=== PATIENT | female | born 1945 | race Caucasian/White ===

== ENCOUNTER 2022-10-10 19:29 | Emergency (ER) | payer MEDICARE, SELFPAY ==
--- NOTE | ~2022-10-10 | XR_ITS ---
EXAMINATION: XR chest 2V DATE: 10/10/2022 21:19 INDICATION: Cough and fever TECHNIQUE: PA and lateral views of the chest are obtained. COMPARISON: None available FINDINGS: There are minimal airspace opacities of the right lower lobe. No pleural effusion or pneumo thorax. The cardiomediastinal silhouette is normal. There is moderate thoracic spondylosis. IMPRESSION: 1. Minimal right lower lobe airspace opacity, consistent with atelectasis versus pneumonia. Reviewed, dictated and finalized at location F. IMPRESSION: 1. Minimal right lower lobe airspace opacity, consistent with atelectasis versu s pneumonia.
[2022-10-10 19:35] VITALS: BP 138/68; PULSE 95; RESP 15; TEMP 38.3; O2SAT 96
[2022-10-10 20:26] LABS: Strep Group A RT-PCR NOT DETECTED (Negative)
[2022-10-10 20:37] LABS: Influenza A QL RT-PCR Negative (Negative); Influenza B QL RT-PCR Negative (Negative); SARS-CoV-2 RNA PCR Positive (Negative)
[2022-10-10 20:42] VITALS: PULSE 90; TEMP 38.2; O2SAT 96; O2SAT 98
--- NOTE | 2022-10-10 20:49 | ED.URI ---
HPI - URI/Sore Throat General Chief Complaint: Upper Respiratory Infection Stated Complaint: sore throat Time Seen by Provider: 10/10/22 20:48 History of Present Illness HPI Narrative: Patient is a 77-year-old female with history of ulcerative colitis managed with the budesonide and diet, here with cough, sore throat. patient notes that on Friday she arrived to [facility] after a 24 [address] ride from [place]. Yesterday she began having symptoms including a sore throat and losing her voice. She then developed a nonproductive cough as well as a fever. She had no known sick contacts. She has not been taking anything [id number] for her pain or fever. She denies any GI symptoms. She is vaccinated for COVID x3. She does note that her sore throat seems to radiate down into her upper chest but denies any overt chest pain. Related Data Allergies Allergy/AdvReac Type Severity Reaction Status Date / Time Penicillins Allergy Hives Verified 10/10/22 20:51 Review of Systems Review of Systems: CONSTITUTIONAL: Fever, chills, no sweats. EYES: Denies visual changes, redness, or discharge. ENT: congestion, sore throat, voice hoarseness CARDIOVASCULAR: Denies chest pain, palpitations, or edema. RESPIRATORY: cough, dyspnea. GASTROINTESTINAL: Denies abdominal pain, nausea, vomiting, or diarrhea. GENITOURINARY: Denies dysuria or hematuria. SKIN: Denies rash or itching. MUSCULOSKELETAL: Denies back pain, joint pain, or myalgia. NEUROLOGIC: Denies headache, numbness, or weakness. PSYCHIATRIC: Denies anxiety or depression. Exam Narrative: GENERAL: Well-appearing, well-nourished, and in no acute distress. HEAD: Normocephalic, atraumatic. EYES: PERRLA and EOMI. ENT: Nares clear, no rhinorrhea or epistaxis. Mucous membranes moist. Posterior pharyngeal erythema present, no exudate or obvious paratonsillar swelling. NECK: Supple. CHEST: Coarse bilateral breath sounds. No respiratory distress. HEART: Regular rate and rhythm. No murmur heard. Normal peripheral pulses. ABDOMEN: Soft, nontender, nondistended, normal active bowel sounds. EXTREMITIES: Normal range of motion. No edema. SKIN: Warm, dry, no rash. NEURO: No focal deficits. Alert and oriented x3. PSYCH: Normal mood and affect. Course Course Emergency Course: Chart review performed. Patient here with shortness of breath and sore throat for 24 hours. No medical or surgical history on file. No home meds on file. Triage vitals show a fever to 100.8, normal heart rate, normal blood pressure, O2 sat of 96%. Patient seen evaluated. In no acute distress. 0 his BUN with a viral swab performed in triage shows positive for COVID, negative for influenza and strep. Given patient's risk factors and anticipation for initiating vaccinated with the basic labs, chest x-ray. She does not have a local primary care doctor as she is originally from [place]. Lab work reviewed. CBC grossly within normal limits, electrolytes and troponin pending. Troponin negative. Patient reevaluated and feeling better, feels comfortable being discharged. Advise to follow her symptoms closely and get reevaluated if symptoms worsen. She should contact her PCP and discuss her results and visit. Vital Signs Vital signs: Vital Signs Temperature 100.9 F H 10/10/22 19:35 Pulse Rate 95 10/10/22 19:35 Respiratory Rate 15 10/10/22 19:35 Blood Pressure 138/68 10/10/22 19:35 Pulse Oximetry 96 10/10/22 19:35 Oxygen Delivery Room Air 10/10/22 19:35 Temperature 100.8 F H 10/10/22 20:42 Pulse Rate 90 10/10/22 20:42 Respiratory Rate 15 10/10/22 19:35 Blood Pressure 138/68 10/10/22 19:35 Pulse Oximetry 96 10/10/22 20:42 Oxygen Delivery Room Air 10/10/22 20:42 MDM - URI/Sore Throat Lab Data 10/10/22 21:40 10/10/22 21:40 Labs: Lab Results 10/10/22 10/10/22 Range/Units 19:54 21:40 WBC 5.1 (4.5-10.0) K/mm3 RBC 4.11
[2022-10-10] MEDS: ACETAMINOPHEN 325 MG TABLET 650 MG PO (21:08)
[2022-10-10 21:55] LABS: Basophils Percent Auto 0.4 % (0.2-1.2); Hematocrit 39.3 % (37.0-47.0); Hemoglobin 12.7 g/dL (12.0-15.0); Immature Granulocyte Absolute 0.01 K/mm3 (0.00-0.031); Immature Granulocyte Percent A 0.2 % (0-0.5); Lymphocytes Absolute Auto 0.47 K/mm3 (0.9-3.2); Lymphocytes Percent Auto 9.3 % (18.3-44.2); Mean Corpuscular HGB Conc 32.3 g/dl (32-36); Mean Corpuscular Hemoglobin 30.9 pg (26-34); Mean Corpuscular Volume 95.6 fl (80-100); Mean Platelet Volume 9.3 fl (7.4-10.4); Monocytes Absolute Auto 0.4 K/mm3 (0.1-0.6); Monocytes Percent Auto 7.9 % (2.6-8.5); Neutrophils Absolute Auto 4.2 K/mm3 (1.3-6.7); Neutrophils Percent Auto 82.2 % (45.5-73.1); Platelet Count Result 190 k/mm3 (150-375); Red Blood Count 4.11 M/mm3 (4.2-5.4); Red Cell Distribution Width 13.4 % (11.5-14.5); White Blood Count 5.1 K/mm3 (4.5-10.0)
[2022-10-10 22:04] LABS: Alanine Aminotransferase 22 U/L (6-35); Albumin Level 4.1 g/dL (3.5-5.1); Alkaline Phosphatase 65 U/L (38-126); Anion Gap 7 mmol/L (8-16); Aspartate Amino Transferase 31 U/L (14-36); Bilirubin,Total 0.2 mg/dL (0.2-1.3); Blood Urea Nitrogen 11 mg/dL (7-17); Calcium 8.4 mg/dL (8.4-10.2); Carbon Dioxide 26 mmol/L (22-30); Chloride 98 mmol/L (98-107); Estimated CRCL calculation 49 ml/min; Estimated Glomerular Filt Rate > 60; Glucose 110 mg/dL (65-110); Potassium 3.9 mmol/L (3.4-5.0); Sodium 131 mmol/L (137-145)
[2022-10-10 22:16] LABS: Troponin I < 0.012 ng/mL (0.000-0.034)
[2022-10-10 22:32] VITALS: TEMP 37.8; O2SAT 99
== END 2022-10-10 22:30 | disposition home or self-care (01) ==
LOC: ANHED 22:18
PROVIDERS: Nurse Practitioner Family; Emergency Provider Student in an Organized Health Care Education/Training Program
DX: U07.1 COVID-19 (principal); K51.90 Ulcerative colitis, unspecified, without complications; R91.8 Other nonspecific abnormal finding of lung field
CPT/HCPCS: 36415; 71046; 80053; 84484; 85025; 87636; 87651; 99284; A9270

== ENCOUNTER 2022-10-11 09:39 | Inpatient (IN) | payer MEDICARE, SELFPAY ==
[2022-10-11] VITALS (28 sets, daily range): BP systolic 102–135; BP diastolic 57–76; PULSE 84–103; RESP 17–29; TEMP 36.7–36.8; O2SAT 89–100; BMI 21.1
--- NOTE | ~2022-10-11 | XR_ITS ---
EXAMINATION: XR chest 1V portable DATE: 10/11/2022 10:23 INDICATION: Shortness of breath. COVID-19 pneumonia. TECHNIQUE: A single frontal view of the chest was obtained. COMPARISON: Chest 2 views 10/10/2022 FINDINGS: There are airspace and interstitial opacities in the lower lung zones. No pleural effusion or pneumothorax. The heart size is normal. IMPRESSION: 1. Worsened airspace and interstitial opacities in the lower lung zones, consistent with pneumonia. Reviewed, dictated and finalized at location B. IMPRESSION: 1. Worsened airspace and interstitial opacities in the lower lung zones, consis tent with pneumonia.
--- NOTE | 2022-10-11 10:56 | ED.GENADULT ---
HPI - General Adult General Chief complaint: Upper Respiratory Infection Stated complaint: COVID Time Seen by Provider: 10/11/22 09:51 History of Present Illness HPI narrative: 77-year-old female presented the ED for evaluation of sore throat. Patient was evaluated emergency department yesterday for a sore throat and was ultimately diagnosed with COVID. Patient was started on Paxlovid patient states that due to her sore throat she was unable to take the medication so she presented to ED for evaluation. In the waiting room patient was found to be saturating at 89% on room air. Patient normally has no O2 requirement. Patient did have an increased respiratory rate as well. Patient was placed on oxygen and improved and she was trial of oxygen and then again worsened. Check x-ray did show a worsening lower lobe pneumonia. Patient is handling her secretions in the ED but does report some increased pain with swallowing Related Data Allergies Allergy/AdvReac Type Severity Reaction Status Date / Time codeine Allergy Hallucinati Verified 10/11/22 13:18 ng Penicillins Allergy Hives Verified 10/11/22 13:17 Review of Systems Review of Systems: All systems reviewed & are unremarkable except as noted in HPI and below [facility] Past Medical History Medical History (Updated 10/11/22 @ 14:15 by Falguni Crespo NP) Anxiety Hypertension Irritable bowel syndrome Surgical History Surgical History (Updated 10/11/22 @ 14:14 by Falguni Crespo NP) H/O cataract extraction S/P tonsillectomy and adenoidectomy Family History Family History Mother Suicidal intent Father Kidney failure Diabetes mellitus Sibling Breast cancer Social History Social History (Updated 10/11/22 @ 14:17 by Falguni Crespo NP) Social History: The patient is legally from her . She typically lives in [place]. Her lives here. They have a son and a daughter. 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 She is retired. She is a former smoker Code status full code Smoking packs per day: 1 Smoking cigarettes per day: 20.0 Years smoked: 30 Smoking pack-years: 30.00 Smoking status: Former smoker Smoking end date: 11/07/22 Alcohol intake: never Substance use: never Substance use type: does not use Lack of Transportation: No Lack of Food: Never True Current Housing: I Have Housing Concerned About Future Housing: No Difficulty Paying Gas/Electric Bills: No Difficulty Paying for Meds: No Currently Unemployed: No Education: Bachelor's Degree Difficulty w/ Childcare or Family Care: No Spiritual care concerns: No Exam Narrative: APPEARANCE: Well appearing, no pain, no distress, well-nourished. HEAD: normocephalic, atraumatic. EYES: PERRLA/EOMI, conjunctivae clear. NOSE: Normal no drainage EARS:TMS clear with good light reflex. THROAT: Pharynx clear, no exudate. NECK: Supple. No adenopathy, no masses. RESPIRATORY: Airway patent, respirations nonlabored. Clear to auscultation bilaterally, no rales, rhonchi, wheezing. CARDIOVASCULAR: Regular rate and rhythm without murmurs rubs or gallops. ABDOMINAL: Soft, nontender, nondistended, normal bowel sounds MUSCULOSKELETAL: Moves all extremities. Strength/ROM intact, No edema, No calf tenderness. NEURO: Alert. Cranial nerves II through XII intact. Grossly intact SKIN: Warm, dry. Normal Color Course Course Emergency Course: 77-year-old female presented ED for evaluation of sore throat. Patient is COVID-positive is found to be hypoxic. Patient was placed on 2 L of oxygen by nasal cannula and did not tolerate weaning of the oxygen. Patient was treated with Decadron. Repeat chest x-ray does show concern for pneumonia so patient was also started on antibiotics and blood culture was pending. Patient was also treated with IV Decadron. Patient was started on Leva
[2022-10-11 11:27] LABS: Basophils Percent Auto 0.6 % (0.2-1.2); Hematocrit 40.8 % (37.0-47.0); Hemoglobin 13.3 g/dL (12.0-15.0); Immature Granulocyte Absolute 0.01 K/mm3 (0.00-0.031); Immature Granulocyte Percent A 0.3 % (0-0.5); Lymphocytes Absolute Auto 0.33 K/mm3 (0.9-3.2); Lymphocytes Percent Auto 9.9 % (18.3-44.2); Mean Corpuscular HGB Conc 32.6 g/dl (32-36); Mean Corpuscular Hemoglobin 30.9 pg (26-34); Mean Corpuscular Volume 94.7 fl (80-100); Mean Platelet Volume 9.9 fl (7.4-10.4); Monocytes Absolute Auto 0.2 K/mm3 (0.1-0.6); Monocytes Percent Auto 5.4 % (2.6-8.5); Neutrophils Absolute Auto 2.8 K/mm3 (1.3-6.7); Neutrophils Percent Auto 83.8 % (45.5-73.1); Platelet Count Result 194 k/mm3 (150-375); Red Blood Count 4.31 M/mm3 (4.2-5.4); Red Cell Distribution Width 13.3 % (11.5-14.5); White Blood Count 3.3 K/mm3 (4.5-10.0)
[2022-10-11] MEDS: VANCOMYCIN 1,250 MG/NS 250 ML 1,250 MG/250 ML BAG 166.67 MG IVPB (11:47)
[2022-10-11 11:48] LABS: Alanine Aminotransferase 23 U/L (6-35); Albumin Level 4.3 g/dL (3.5-5.1); Alkaline Phosphatase 56 U/L (38-126); Anion Gap 7 mmol/L (8-16); Aspartate Amino Transferase 35 U/L (14-36); Bilirubin,Total 0.4 mg/dL (0.2-1.3); Blood Urea Nitrogen 10 mg/dL (7-17); Calcium 8.5 mg/dL (8.4-10.2); Carbon Dioxide 27 mmol/L (22-30); Chloride 96 mmol/L (98-107); Estimated CRCL calculation 57 ml/min; Estimated Glomerular Filt Rate > 60; Glucose 116 mg/dL (65-110); Potassium 3.9 mmol/L (3.4-5.0); Sodium 130 mmol/L (137-145)
[2022-10-11] MEDS: levoFLOXacin 750 MG/D5W 150 ML 750 MG/150 ML BAG 100 MG IVPB (12:02)
[2022-10-11 12:06] LABS: Band Neutrophils Percent 16 % (0-6); Lymphocytes Absolute Manual 0.42 K/mm3 (1.1-4.5); Metamyelocytes Percent 14 %; Monocytes Absolute Manual 0.33 K/mm3 (0.1-0.90); Monocytes Percent Manual 10 % (3-9); Myelocytes Percent 1 %; Neutrophils Absolute Manual 2.04 K/mm3 (1.7-7.2); Neutrophils Percent Manual 46 % (46-73); Platelet Estimate Adequate (Adequate); Total Cells Counted 100
[2022-10-11 12:07] LABS: Schistocytes None Seen (NORMAL)
--- NOTE | 2022-10-11 12:55 | ADMGEN ---
This patient, Pau Russo, was admitted to Medical Room 241-. Patient/family oriented to hospital policies and general routines including ID bracelet, bed and alarms, visiting hours, pain management, procedures, bathroom and other care routines, personal items, smoking policy, room service/diet, and visiting hours. Information on how to activate the Rapid Response Team has been discussed. Patient/Family are encouraged to report perceived risks to care and to ask questions if they do not understand what they are told or what they should do.
--- NOTE | 2022-10-11 13:58 | PM.IMHP ---
H&P: HPI History of Present Illness Date/Time: 10/11/22 13:58 Chief Complaint: Upper respiratory infection Narrative: This is a 77-year-old female patient who was recently on a long trip on a train. On Friday she arrived to [facility] after 24 hour train from [place]. She has a history of ulcerative colitis manage by with desonide diet. The patient came into the emergency room last night with a complaint of sore throat. She has had 3 vaccine for COVID. She has had a loose nonproductive cough. The patient tested positive for COVID last night. She felt comfortable going home but then returned today. She is more short of breath today she also stated that her throat was too sore to be able to swallow the Paxlovid. Also her O2 saturations were 89%. She does not normally wear oxygen the patient was placed on 2 L here at [facility]. Chest x-ray did show worsening lower lobe pneumonia. The patient was given Decadron and vancomycin. She was also given Levaquin. The patient is being admitted to observation status on the date of service of 10/11/2022. Review of Systems Review of Systems: All systems reviewed & are unremarkable except as noted in HPI and below Constitutional: Constitutional: Reports as per HPI and Reports no additional constitutional complaints Eyes: Eyes: Reports as per HPI and Reports no additional eye complaints ENT: Reports system reviewed and no additional complaints, except as documented and Reports Normal hearing present Cardiovascular: Cardiovascular: Reports no additional cardiovascular complaints Respiratory: Respiratory: Reports no additional respiratory complaints and Reports no additional respiratory complaints Gastrointestinal: Gastrointestinal: Reports as per HPI and Reports no additional gastrointestinal complaints Musculoskeletal: Musculoskeletal: Reports no additional musculoskeletal complaints Integumentary/Breasts: Skin/Breast: Reports system reviewed and no additional complaints, except as docu and Reports as per HPI Neurologic: Reports system reviewed and no additional complaints, except as documented, Reports as per HPI and Reports Normal hearing present Psychiatric: Psychiatric: Reports no additional psychiatric complaints and Reports as per HPI Endocrine: Endocrine: Reports no additional endocrine complaints Hematologic/Lymphatic: Hematologic/Lymphatic: Reports no additional hematologic/lymphatic complaints Allergic/Immunologic: Allergic/Immunologic: Reports no additional allergic/immunologic complaints [facility] Past Medical History Medical History (Updated 10/11/22 @ 14:15 by Falguni Crespo NP) Anxiety Hypertension Irritable bowel syndrome Surgical History Surgical History (Updated 10/11/22 @ 14:14 by Falguni Crespo NP) H/O cataract extraction S/P tonsillectomy and adenoidectomy Family History Family History Mother Suicidal intent Father Kidney failure Diabetes mellitus Sibling Breast cancer Social History Social History (Updated 10/11/22 @ 14:17 by Falguni Crespo NP) Social History: The patient is legally from her . She typically lives in [place]. Her lives here. They have a son and a daughter. 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 She is retired. She is a former smoker Code status full code Smoking packs per day: 1 Smoking cigarettes per day: 20.0 Years smoked: 30 Smoking pack-years: 30.00 Smoking status: Former smoker Smoking end date: 11/07/22 Alcohol intake: never Substance use: never Substance use type: does not use Lack of Transportation: No Lack of Food: Never True Current Housing: I Have Housing Concerned About Future Housing: No Difficulty Paying Gas/Electric Bills: No Difficulty Paying for Meds: No Currently Unemployed: No Education: Bachelor's Degree Difficulty w/ Childcare or Family Care: N
[2022-10-11] MEDS: REMDESIVIR 200 MG/NS 250 ML 200 MG/250 ML BAG 250 MG IVPB (14:47)
[2022-10-11 15:51] LABS: Alanine Aminotransferase 18 U/L (6-35); Estimated CRCL calculation 58 ml/min; Estimated Glomerular Filt Rate > 60
[2022-10-11 15:54] LABS: INR 1.1; Prothrombin Time 14.5 Seconds (11.1-14.7)
[2022-10-11] MEDS: ALBUTEROL SULFATE (*SP) AEROSOL 1 PUFF 2 PUFF INHALATION ×2 (16:27→19:46)
[2022-10-11] MEDS: MELATONIN 5 MG TABLET PO (21:38)
[2022-10-12] VITALS (8 sets, daily range): BP systolic 112–127; BP diastolic 54–68; PULSE 77–96; RESP 16–18; TEMP 35.9–36.9; O2SAT 93–99
[2022-10-12 06:21] LABS: Hematocrit 38.1 % (37.0-47.0); Hemoglobin 12.4 g/dL (12.0-15.0); Mean Corpuscular HGB Conc 32.5 g/dl (32-36); Mean Corpuscular Hemoglobin 30.7 pg (26-34); Mean Corpuscular Volume 94.3 fl (80-100); Mean Platelet Volume 10.4 fl (7.4-10.4); Platelet Count Result 199 k/mm3 (150-375); Red Blood Count 4.04 M/mm3 (4.2-5.4); Red Cell Distribution Width 13.5 % (11.5-14.5); White Blood Count 8.3 K/mm3 (4.5-10.0)
[2022-10-12 06:29] LABS: Alanine Aminotransferase 26 U/L (6-35); Albumin Level 3.6 g/dL (3.5-5.1); Alkaline Phosphatase 54 U/L (38-126); Anion Gap 6 mmol/L (8-16); Aspartate Amino Transferase 32 U/L (14-36); Bilirubin,Total 0.2 mg/dL (0.2-1.3); Blood Urea Nitrogen 12 mg/dL (7-17); Calcium 8.6 mg/dL (8.4-10.2); Carbon Dioxide 27 mmol/L (22-30); Chloride 100 mmol/L (98-107); Estimated CRCL calculation 58 ml/min; Estimated Glomerular Filt Rate > 60; Glucose 112 mg/dL (65-110); Lactate Dehydrogenase 191 U/L (120-246); Potassium 3.7 mmol/L (3.4-5.0); Sodium 133 mmol/L (137-145)
[2022-10-12 06:34] LABS: Lactic Acid Reflex 1.8 mmol/L (0.7-2.0)
[2022-10-12 06:35] LABS: INR 1.1; Prothrombin Time 14.8 Seconds (11.1-14.7)
[2022-10-12 07:17] LABS: Band Neutrophils Percent 65 % (0-6); Lymphocytes Absolute Manual 0.83 K/mm3 (1.1-4.5); Metamyelocytes Percent 4 %; Monocytes Absolute Manual 0.49 K/mm3 (0.1-0.90); Monocytes Percent Manual 6 % (3-9); Neutrophils Absolute Manual 6.64 K/mm3 (1.7-7.2); Neutrophils Percent Manual 15 % (46-73); Platelet Estimate Adequate (Adequate); Total Cells Counted 100
[2022-10-12 07:18] LABS: Burr Cells 1+ (NORMAL); Schistocytes None Seen (NORMAL)
[2022-10-12] MEDS: ALBUTEROL SULFATE (*SP) AEROSOL 1 PUFF 2 PUFF INHALATION ×5 (08:33→22:47)
[2022-10-12] MEDS: ENOXAPARIN 40 MG/0.4 ML SYRINGE SUB-Q (10:19)
[2022-10-12] MEDS: DEXAMETHASONE SOD PHOS INJ 4 MG/ML VIAL 6 MG IV PUSH (10:19)
[2022-10-12] MEDS: REMDESIVIR 100 MG/NS 250 ML 100 MG/250 ML BAG 250 MG IVPB (10:19)
--- NOTE | 2022-10-12 11:35 | PM.IMPN ---
Progress Note: A&P Assessment and Plan (1) COVID-19: Code(s): U07.1 - COVID-19 Status: Acute Assessment and Plan: 10/12: Patient is day 3 of symptoms requiring supplemental oxygenation. Remdesivir ordered. Dexamethasone ordered. (2) Pneumonia: Code(s): J18.9 - Pneumonia, unspecified organism Status: Acute Assessment and Plan: 10/12: Likely COVID pneumonia however she is also being treated for potential bacterial pneumonia. Blood cultures in progress. MRSA nasal swab ordered. Increased albuterol inhaler to every 2 hours. (3) Hypoxia: Code(s): R09.02 - Hypoxemia Status: Acute Assessment and Plan: Patient require supplemental oxygenation due to presence of COVID pneumonia and baseline hypoxia as well as mild to moderate respiratory difficulty. Plan If patient is not able to drink enough we will restart IV fluids. Continue dexamethasone for total of 7 days. Increase use of albuterol inhaler, avoid nebulizers if possible Advance diet as tolerated based on sore throat. Water, tea and applesauce tolerated today Time Spent With Patient Time with patient: 25 - 35 minutes Subjective Date/time seen: 10/12/22 11:35 Interval history: This is a previously healthy 77-year-old female patient who was admitted to the hospital for COVID difficulty breathing sore throat difficulty swallowing pills at home. Today is day 3 of illness. Patient was prescribed Paxilovid but was unable to swallow it even cutting it in half. On subsequent emergency department visit patient noted to pneumonia in addition to difficulty taking adequate orals. She is admitted on oxygen, dexamethasone and remdesivir. 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 Review of Systems Review of Systems: All systems reviewed & are unremarkable except as noted in HPI and below Exam Narrative: GENERAL: Thin and fatigued appearing 77-year-old alert and oriented x4 in mild respiratory distress with occasional cough. She is pleasant and conversant in full sentences. HEENT: Pupils are equally round and briskly reactive to light. Extraocular muscles are intact. Oral mucous membranes are moist without lesions. Pharyngeal erythema noted. NECK: The patient has no noted JVD. CHEST/LUNGS: Lungs are diminished throughout without significant rhonchi. Mild wheeze noted at times. There is no tenderness to the chest wall. HEART: The patient has a regular rate and rhythm. No murmurs, rubs, or gallops are appreciated. Distal pulses are 2+. No carotid bruits appreciated. ABDOMEN: The patient?s abdomen is soft, nontender, and nondistended. Bowel sounds are positive. No organomegaly is appreciated. No peritoneal signs. EXTREMITIES: The patient has no peripheral edema. There is no focal long bone tenderness or deformity. SKIN: The patient?s skin is warm and dry, without rashes or lesions. PSYCHIATRIC: The patient has normal mental status and has an appropriate affect. NEUROLOGIC: There are no gross deficits to the cranial nerves. Patient ambulates with steady gait. Objective Data Vital Signs Vital Signs: Vital Signs - 24 hr 10/11/22 11:47 10/11/22 12:02 10/11/22 12:15 Temperature Pulse Rate 93 96 94 Respiratory Rate 27 H 29 H 23 H Blood Pressure Pulse Oximetry 96 97 98 Oxygen Delivery Oxygen Flow Rate 10/11/22 12:30 10/11/22 12:31 10/11/22 13:10 Temperature 36.8 C Pulse Rate 90 88 93 Respiratory Rate 24 H 22 H 20 Blood Pressure 102/59 L 110/60 Pulse Oximetry 98 97 96 Oxygen Delivery Oxygen Flow Rate 10/11/22 14:07 10/11/22 16:27 10/11/22 19:46 Temperature Pulse Rate Respiratory Rate 20 18 Blood Pressure Pulse Oximetry 96 93 Oxygen Delivery Nasal Cannula Nasal Cannula Oxygen Flow Rate 2 2 10/11/22 19:47 10/11/22 20:57 10/11/22 20:00 Temperature 36.7 C Pulse Rate 84 84 Respiratory Rate 18 18 Blood Pressure
[2022-10-12] MEDS: levoFLOXacin 750 MG/D5W 150 ML 750 MG/150 ML BAG 100 MG IVPB (11:40)
[2022-10-12] MEDS: VANCOMYCIN 1,000 MG/NS 250 ML 1,000 MG/250 ML BAG 250 MG IVPB (13:12)
[2022-10-12] MEDS: MELATONIN 5 MG TABLET PO (21:20)
[2022-10-13] VITALS (7 sets, daily range): BP systolic 115–138; BP diastolic 56–74; PULSE 70–91; RESP 16–20; TEMP 36.1–36.6; O2SAT 93–99
[2022-10-13 05:52] LABS: Hematocrit 38.2 % (37.0-47.0); Hemoglobin 12.3 g/dL (12.0-15.0); Mean Corpuscular HGB Conc 32.2 g/dl (32-36); Mean Corpuscular Hemoglobin 30.7 pg (26-34); Mean Corpuscular Volume 95.3 fl (80-100); Mean Platelet Volume 10.5 fl (7.4-10.4); Platelet Count Result 210 k/mm3 (150-375); Red Blood Count 4.01 M/mm3 (4.2-5.4); Red Cell Distribution Width 13.5 % (11.5-14.5)
[2022-10-13] MEDS: ALBUTEROL SULFATE (*SP) AEROSOL 1 PUFF 2 PUFF INHALATION ×6 (05:59→21:11)
[2022-10-13 06:00] LABS: Prothrombin Time 14.1 Seconds (11.1-14.7)
[2022-10-13 06:09] LABS: Alanine Aminotransferase 20 U/L (6-35); Albumin Level 3.3 g/dL (3.5-5.1); Alkaline Phosphatase 50 U/L (38-126); Anion Gap 6 mmol/L (8-16); Aspartate Amino Transferase 28 U/L (14-36); Bilirubin,Total 0.2 mg/dL (0.2-1.3); Blood Urea Nitrogen 11 mg/dL (7-17); Calcium 8.6 mg/dL (8.4-10.2); Carbon Dioxide 23 mmol/L (22-30); Chloride 101 mmol/L (98-107); Estimated CRCL calculation 68 ml/min; Estimated Glomerular Filt Rate > 60; Glucose 110 mg/dL (65-110); Potassium 3.6 mmol/L (3.4-5.0); Sodium 130 mmol/L (137-145)
[2022-10-13 07:31] LABS: Band Neutrophils Percent 27 % (0-6); Lymphocytes Absolute Manual 1.04 K/mm3 (1.1-4.5); Metamyelocytes Percent 2 %; Monocytes Absolute Manual 0.64 K/mm3 (0.1-0.90); Monocytes Percent Manual 8 % (3-9); Neutrophils Absolute Manual 6.16 K/mm3 (1.7-7.2); Neutrophils Percent Manual 50 % (46-73); Total Cells Counted 100
[2022-10-13 07:32] LABS: Burr Cells 2+ (NORMAL); Platelet Estimate Adequate (Adequate); Poikilocytosis 1+ (NORMAL); Schistocytes None Seen (NORMAL)
[2022-10-13] MEDS: DEXAMETHASONE SOD PHOS INJ 4 MG/ML VIAL 6 MG IV PUSH (08:21)
[2022-10-13] MEDS: ENOXAPARIN 40 MG/0.4 ML SYRINGE SUB-Q (08:21)
[2022-10-13] MEDS: levoFLOXacin 750 MG/D5W 150 ML 750 MG/150 ML BAG 100 MG IVPB (08:21)
[2022-10-13 10:56] LABS: Vancomycin Trough < 5.0 ug/mL (10.0-20.0)
[2022-10-13] MEDS: REMDESIVIR 100 MG/NS 250 ML 100 MG/250 ML BAG 250 MG IVPB (11:11)
--- NOTE | 2022-10-13 13:10 | PM.IMPN ---
Progress Note: A&P Assessment and Plan (1) COVID-19: Code(s): U07.1 - COVID-19 Status: Acute Assessment and Plan: 10/12: Patient is day 3 of symptoms requiring supplemental oxygenation. Remdesivir ordered. Dexamethasone ordered. 10/13: Patient on day 4 of symptoms, supplemental oxygenation removed and patient seems to be tolerating at this time. Remdesivir and dexamethasone to continue. Consider discharge tomorrow to finish up Paxilovid prescription (2) Pneumonia: Code(s): J18.9 - Pneumonia, unspecified organism Status: Acute Assessment and Plan: 10/12: Likely COVID pneumonia however she is also being treated for potential bacterial pneumonia. Blood cultures in progress. MRSA nasal swab ordered. Increased albuterol inhaler to every 2 hours. 10/13: Vancomycin trough is low and pharmacy increased dose. Will consider deescalating therapy tomorrow with possible discharge home. (3) Hypoxia: Code(s): R09.02 - Hypoxemia Status: Acute Assessment and Plan: Patient require supplemental oxygenation due to presence of COVID pneumonia and baseline hypoxia as well as mild to moderate respiratory difficulty. 10/13: Patient maintaining saturations without supplemental oxygen since removal this morning. Consider discharge if patient remains off oxygen overnight. Plan Continue remdesivir, dexamethasone, Levaquin and vancomycin. Replace oxygen if dyspnea or desaturation Consider discharge tomorrow if no oxygen required Encourage incentive spirometry use Time Spent With Patient Time with patient: 25 - 35 minutes Subjective Date/time seen: 10/13/22 13:10 Interval history: This is a previously healthy 77-year-old female patient who was admitted to the hospital for COVID difficulty breathing sore throat difficulty swallowing pills at home. Today is day 3 of illness. Patient was prescribed Paxilovid but was unable to swallow it even cutting it in half. On subsequent emergency department visit patient noted to pneumonia in addition to difficulty taking adequate orals. She is admitted on oxygen, dexamethasone and remdesivir. 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 10/13: Patient seen this morning still coughing frequently and taking shallow breaths no respiratory distress. Oxygen removed and nursing to check saturations frequently. May replace oxygen necessary. Patient reports that she did not get much rest overnight that she is feeling better today. No fever or chills. Review of Systems Review of Systems: All systems reviewed & are unremarkable except as noted in HPI and below Exam Narrative: GENERAL: Thin and fatigued appearing 77-year-old alert and oriented x4, no respiratory distress but more frequent cough noted. She is pleasant and conversant. HEENT: Pupils are equally round and briskly reactive to light. Extraocular muscles are intact. Oral mucous membranes are moist without lesions. Pharyngeal erythema noted. NECK: The patient has no noted JVD. CHEST/LUNGS: Lungs are diminished throughout without significant rhonchi. Mild wheeze noted at times. Patient able to pull 500 mL on incentive spirometry, encouraged frequent use 10 times per hour while awake HEART: The patient has a regular rate and rhythm. No murmurs, rubs, or gallops are appreciated. Distal pulses are 2+. No carotid bruits appreciated. ABDOMEN: The patient?s abdomen is soft, nontender, and nondistended. Bowel sounds are positive. EXTREMITIES: The patient has no peripheral edema. There is no focal long bone tenderness or deformity. SKIN: The patient?s skin is warm and dry, without rashes or lesions. PSYCHIATRIC: The patient has normal mental status and has an appropriate affect. NEUROLOGIC: There are no gross deficits to the cranial nerves. Patient ambulates with steady gait. Objective Data Vital Signs Vital Signs: Vital Signs - 24 hr 10/12/22 13:52 08
[2022-10-13] MEDS: MELATONIN 5 MG TABLET PO (20:44)
[2022-10-14] MEDS: ALBUTEROL SULFATE (*SP) AEROSOL 1 PUFF 2 PUFF INHALATION ×5 (00:44→12:14)
[2022-10-14 04:13] VITALS: BP 131/71; PULSE 76; RESP 16; TEMP 36.4; O2SAT 96
[2022-10-14 06:03] LABS: Basophils Percent Auto 0.2 % (0.2-1.2); Hematocrit 36.9 % (37.0-47.0); Hemoglobin 12.1 g/dL (12.0-15.0); Immature Granulocyte Absolute 0.03 K/mm3 (0.00-0.031); Immature Granulocyte Percent A 0.3 % (0-0.5); Lymphocytes Percent Auto 9.9 % (18.3-44.2); Mean Corpuscular HGB Conc 32.8 g/dl (32-36); Mean Corpuscular Hemoglobin 30.4 pg (26-34); Mean Corpuscular Volume 92.7 fl (80-100); Mean Platelet Volume 9.3 fl (7.4-10.4); Monocytes Absolute Auto 0.7 K/mm3 (0.1-0.6); Monocytes Percent Auto 7.4 % (2.6-8.5); Neutrophils Absolute Auto 7.5 K/mm3 (1.3-6.7); Neutrophils Percent Auto 82.2 % (45.5-73.1); Platelet Count Result 241 k/mm3 (150-375); Red Blood Count 3.98 M/mm3 (4.2-5.4); Red Cell Distribution Width 13.5 % (11.5-14.5); White Blood Count 9.1 K/mm3 (4.5-10.0)
[2022-10-14 06:16] LABS: Alanine Aminotransferase 21 U/L (6-35); Albumin Level 3.3 g/dL (3.5-5.1); Alkaline Phosphatase 52 U/L (38-126); Anion Gap 4 mmol/L (8-16); Aspartate Amino Transferase 26 U/L (14-36); Bilirubin,Total 0.2 mg/dL (0.2-1.3); Blood Urea Nitrogen 12 mg/dL (7-17); Calcium 8.6 mg/dL (8.4-10.2); Carbon Dioxide 28 mmol/L (22-30); Chloride 101 mmol/L (98-107); Estimated CRCL calculation 68 ml/min; Estimated Glomerular Filt Rate > 60; Glucose 118 mg/dL (65-110); Potassium 3.5 mmol/L (3.4-5.0); Sodium 133 mmol/L (137-145)
[2022-10-14 06:22] LABS: INR 1.1; Prothrombin Time 14.7 Seconds (11.1-14.7)
[2022-10-14 07:52] VITALS: O2SAT 94
[2022-10-14] MEDS: levoFLOXacin 750 MG/D5W 150 ML 750 MG/150 ML BAG 100 MG IVPB (08:16)
[2022-10-14] MEDS: DEXAMETHASONE SOD PHOS INJ 4 MG/ML VIAL 6 MG IV PUSH (08:16)
[2022-10-14] MEDS: ENOXAPARIN 40 MG/0.4 ML SYRINGE SUB-Q (08:17)
--- NOTE | 2022-10-14 09:04 | PM.DS ---
DS: Admitting Diagnosis Discharge Date 10/14/2022 Admitting Diagnosis COVID-19 Pneumonia Irritable bowel syndrome Hypertension DS: Discharge Diagnosis Discharge Diagnosis (1) COVID-19: Code(s): U07.1 - COVID-19 Status: Acute (2) Pneumonia: Code(s): J18.9 - Pneumonia, unspecified organism Status: Acute (3) Hypoxia: Code(s): R09.02 - Hypoxemia Status: Acute DS: Summary Hospital Course Reason for hospitalization: This is a 77-year-old female patient who was admitted to the hospital for COVID pneumonia with hypoxia and sore throat limiting her ability to swallow food fluids and medications in the outpatient setting Hospital Course: Patient began experiencing symptoms of sore throat cough difficulty breathing on 10/09 then sought care in the emergency department on 10/10 where she was prescribed Paxlovid and dexamethasone. She was unable to swallow the medication and came back to the emergency department on 10/11 where she was started on oxygen, IV steroids, IV antibiotics and IV remdesivir. Patient received IV fluids for a couple of days then she was able to advance her diet. Yesterday patient was able to come off of supplemental oxygen with the use of frequent albuterol inhaler and incentive spirometer. Today patient was feeling much better and was discharged with prescription for oral dexamethasone, oral Levaquin and instructions to continue prior Paxlovid prescription. Status at Discharge Cognitive/behavioral status at discharge: Awake, alert, oriented and pleasant Functional status at discharge: independent ambulation Overall status at discharge: patient is progressing back to baseline Time Spent with Patient Time attestation: Total time spent providing and/or coordinating discharge services: Time spent: Greater than 30 minutes Exam Narrative: GENERAL: Thin and fatigued appearing 77-year-old alert and oriented x4, no respiratory distress. She is pleasant and conversant. HEENT: Pupils are equally round and briskly reactive to light. Extraocular muscles are intact. Oral mucous membranes are moist without lesions. Pharyngeal erythema improved. NECK: The patient has no noted JVD. No adenopathy CHEST/LUNGS: Lungs are clear but diminished throughout without significant rhonchi or wheeze. Patient able to pull 500 mL on incentive spirometry, encouraged frequent use 10 times per hour while awake HEART: The patient has a regular rate and rhythm. No murmurs, rubs, or gallops are appreciated. Distal pulses are 2+. ABDOMEN: The patient?s abdomen is soft, nontender, and nondistended. Bowel sounds are positive. EXTREMITIES: The patient has no peripheral edema. There is no focal long bone tenderness or deformity. SKIN: The patient?s skin is warm and dry, without rashes or lesions. PSYCHIATRIC: The patient has normal mental status and has an appropriate affect. NEUROLOGIC: There are no gross deficits to the cranial nerves. Patient ambulates with steady gait. DS: Data Data Completed and Pending Completed studies during hospitalization: Chest x-ray Labs on day of discharge: Labs from last 24 hours 10/14/22 10/13/22 05:57 09:57 WBC 9.1 RBC 3.98 L Hgb 12.1 Hct 36.9 L MCV 92.7 MCH 30.4 MCHC 32.8 RDW 13.5 Plt Count 241 MPV 9.3 Immature Gran % (Auto) 0.3 Neut % (Auto) 82.2 H Lymph % (Auto) 9.9 L Hudspeth % (Auto) 7.4 Eos % (Auto) 0.0 Baso % (Auto) 0.2 Lymph # (Auto) 0.90 Hudspeth # (Auto) 0.7 H Eos # (Auto) 0.0 Baso # (Auto) 0.0 Abs Immat Gran (auto) 0.03 Absolute Neuts (auto) 7.5 H Absolute Nucleated RBC 0.0 Nucleated RBC % 0.0 PT 14.7 INR 1.1 Sodium 133 L Potassium 3.5 Chloride 101 Carbon Dioxide 28 Anion Gap 4 L BUN 12 Creatinine 0.50 L Estim Creat Clear Calc 68 Estimated GFR > 60 Glucose 118 H Calcium 8.6 Total Bilirubin 0.2 AST 26 ALT 21 Alkaline Phosphatase 52 Total Protein 6.0 L Albumin
[2022-10-14] MEDS: REMDESIVIR 100 MG/NS 250 ML 100 MG/250 ML BAG 250 MG IVPB (10:03)
--- NOTE | 2022-10-14 11:34 | PC.NURSE ---
I reviewed the License Pending Nurse's documentation, Lili Stevens, and agree with the findings.
== END 2022-10-14 13:18 | disposition home or self-care (01) | DRG 177 ==
LOC: ANHED 11:37 → ANH2MED 12:40
PROVIDERS: Nurse Practitioner; Admitting Provider Family Medicine; Emergency Provider Emergency Medicine; Visit Provider Nurse Practitioner
DX: U07.1 COVID-19 (principal); J12.82 Pneumonia due to coronavirus disease 2019; R09.02 Hypoxemia; I10 Essential (primary) hypertension; K58.9 Irritable bowel syndrome, unspecified; F41.9 Anxiety disorder, unspecified; Z87.891 Personal history of nicotine dependence
CPT/HCPCS: 36415; 71045; 80053; 80202; 82565; 83605; 83615; 83735; 84460; 85025; 85610; 87040; 87081; 94640; 96365; 96366; 96367; 96372; 96375; 99285; A9270; G0378; J0248; J1100; J1650; J1956; J3370

== ENCOUNTER 2022-10-20 10:37 | Emergency (ER) | payer MEDICARE, SELFPAY ==
--- NOTE | ~2022-10-20 | CT_ITS ---
EXAMINATION: CT abdomen pelvis w con INDICATION: Constipation TECHNIQUE: Computed tomographic images of the abdomen and pelvis were obtained after the administrati on of 100 cc of Omnipaque 350 intravenous contrast. The dose-length product (DLP) was 205.06 mGy-cm. Automated exposure control and iterative reconstruction technique were employed. COMPARISON: None available FINDINGS: Minimal dependent atelectasis is present in the lung bases. The heart size is normal. There are areas of bronchiectasis in the lower lobes, likely reflecting prior infection. The liver is diff usely low in attenuation when compared with the spleen, consistent with hepatic steatosis. The spleen , pancreas, gallbladder, and adrenal glands are normal. The kidneys are unremarkable. No pathological ly enlarged abdominal or pelvic lymph nodes are identified. There is calcified atherosclerosis of the aorta and many of the other arteries. No free intraperitoneal gas or evidence of bowel obstruction. A moderate volume of colonic stool is present. Colonic diverticulosis is present without evidence of diverticulitis. IMPRESSION: 1. Constipation. Reviewed, dictated and finalized at location A. IMPRESSION: 1. Constipation.
[2022-10-20 10:38] VITALS: BP 156/94; PULSE 103; RESP 20; TEMP 36.8; O2SAT 99
[2022-10-20 11:16] LABS: Basophils Percent Auto 0.2 % (0.2-1.2); Hematocrit 43.3 % (37.0-47.0); Hemoglobin 14.6 g/dL (12.0-15.0); Immature Granulocyte Absolute 0.23 K/mm3 (0.00-0.031); Immature Granulocyte Percent A 2.4 % (0-0.5); Lymphocytes Absolute Auto 0.64 K/mm3 (0.9-3.2); Lymphocytes Percent Auto 6.6 % (18.3-44.2); Mean Corpuscular HGB Conc 33.7 g/dl (32-36); Mean Corpuscular Hemoglobin 30.5 pg (26-34); Mean Corpuscular Volume 90.4 fl (80-100); Monocytes Absolute Auto 1.1 K/mm3 (0.1-0.6); Monocytes Percent Auto 11.6 % (2.6-8.5); Neutrophils Absolute Auto 7.7 K/mm3 (1.3-6.7); Neutrophils Percent Auto 79.2 % (45.5-73.1); Platelet Count Result 459 k/mm3 (150-375); Red Blood Count 4.79 M/mm3 (4.2-5.4); Red Cell Distribution Width 13.2 % (11.5-14.5); White Blood Count 9.8 K/mm3 (4.5-10.0)
[2022-10-20] MEDS: SODIUM CHLORIDE 0.9% IV 1,000 ML 999 ML IV CONT ×2 (11:29→13:07)
--- NOTE | 2022-10-20 11:30 | PC.NURSE ---
CHIN Walker at bedside at this time.
[2022-10-20 11:33] LABS: Lactic Acid Reflex 3.6 mmol/L (0.7-2.0)
--- NOTE | 2022-10-20 12:14 | ED.ABDPAIN ---
HPI - Abdominal Pain General Chief Complaint: Abdominal Pain Stated Complaint: constipation Time Seen by Provider: 10/20/22 10:42 Source: patient Mode of arrival: ambulatory Limitations: no limitations History of Present Illness HPI narrative: Patient is a 77-year-old female who presents ED with report of constipation. Patient has a history of IBS and mild ulcerative colitis. She reports a history of chronic constipation, typically related to her diet. She has had worsening issues over the last 1 month. She states her last bowel movement was last Friday and was small pellets of stool. She has tried taking MiraLAX, stool softeners, laxatives, enemas at home without improvement. She does report pressure in her left lower abdomen and difficulty urinating since last night. She states she feels the urge to go, but is only able to urinate a small amount. Denies any nausea, vomiting, rectal bleeding, fevers. Related Data Allergies Allergy/AdvReac Type Severity Reaction Status Date / Time codeine Allergy Hallucinati Verified 10/11/22 13:18 ng Penicillins Allergy Hives Verified 10/11/22 13:17 Review of Systems Review of Systems: CONSTITUTIONAL: Denies fever, chills, or sweats. CARDIOVASCULAR: Denies chest pain. RESPIRATORY: Denies dyspnea. GASTROINTESTINAL: See HPI. GENITOURINARY: See HPI. SKIN: Denies rash or itching. MUSCULOSKELETAL: Denies back pain, joint pain, or myalgia. All systems reviewed & are unremarkable except as noted in HPI and below PMFSH Past Medical History Medical History Anxiety Hypertension Irritable bowel syndrome Surgical History Surgical History H/O cataract extraction S/P tonsillectomy and adenoidectomy Family History Family History Mother Suicidal intent Father Kidney failure Diabetes mellitus Sibling Breast cancer Social History Social History Social History: The patient is legally from her . She typically lives in [place]. Her lives here. They have a son and a daughter. She has her daughter Alyssa listed as her photoresist contact printer. She is retired. She is a former smoker Code status full code Smoking packs per day: 1 Smoking cigarettes per day: 20.0 Years smoked: 30 Smoking pack-years: 30.00 Smoking status: Former smoker Smoking end date: 11/07/22 Alcohol intake: never Substance use: never Substance use type: does not use Lack of Transportation: No Lack of Food: Never True Current Housing: I Have Housing Concerned About Future Housing: No Difficulty Paying Gas/Electric Bills: No Difficulty Paying for Meds: No Currently Unemployed: No Education: Bachelor's Degree Difficulty w/ Childcare or Family Care: No Spiritual care concerns: No Exam Narrative: GENERAL: Well appearing, thin, non-toxic, in no acute distress. HEAD: Normocephalic, atraumatic. NECK: Supple. No adenopathy, no masses. RESPIRATORY: Airway patent, respirations nonlabored. Clear to auscultation bilaterally, no rales, rhonchi, wheezing. CARDIOVASCULAR: Regular rate and rhythm without murmurs, rubs, or gallops. Radial pulses 2+ and equal bilaterally. ABDOMINAL: Soft, focal tenderness in left lower abdomen, no rebound, nondistended, no hepatosplenomegaly. Normoactive BS. MUSCULOSKELETAL: Moves all extremities. Strength/ROM intact without gross deformities. SKIN: Warm, dry, normal color. No rashes. NEURO: A&O X3. Speech clear. Cranial nerves II-XII grossly intact. Steady gait. No ataxic movements. PSYCHIATRIC: Appropriate mood and affect. Normal interaction. Course Vital Signs Vital signs: Vital Signs Temperature 98.3 F 10/20/22 10:38 Pulse Rate 103 H 10/20/22 10:38 Respiratory Rate 2
[2022-10-20 12:51] LABS: Alanine Aminotransferase 33 U/L (6-35); Albumin Level 3.3 g/dL (3.5-5.1); Alkaline Phosphatase 49 U/L (38-126); Anion Gap 3 mmol/L (8-16); Aspartate Amino Transferase 23 U/L (14-36); Bilirubin,Total 0.4 mg/dL (0.2-1.3); Blood Urea Nitrogen 25 mg/dL (7-17); Calcium 8.8 mg/dL (8.4-10.2); Carbon Dioxide 27 mmol/L (22-30); Chloride 97 mmol/L (98-107); Estimated CRCL calculation 46 ml/min; Estimated Glomerular Filt Rate > 60; Glucose 150 mg/dL (65-110); Lipase 229 U/L (23-300); Potassium 3.7 mmol/L (3.4-5.0); Sodium 127 mmol/L (137-145)
[2022-10-20 13:00] LABS: Appearance Urine Clear (Clear); Bilirubin Urine Negative (Negative); Blood Urine Negative (Negative); Color Urine Yellow (Yellow); Glucose Urine UA Negative (Negative); Ketones Urine Negative (Negative); Leukocyte Esterase Ur Negative LEU/UL (Negative); Nitrate Urine Negative (Negative); Protein Urine Negative (Negative); Specific Grav Ur 1.025 (1.001-1.035)
[2022-10-20 13:06] LABS: Add Urine Microscopic? NO
--- NOTE | 2022-10-20 13:40 | PC.NURSE ---
pt taken to CT at this time by lawn care technician.
[2022-10-20 14:03] VITALS: BP 160/67; PULSE 74; RESP 20; O2SAT 100
[2022-10-20 14:14] LABS: Reflex Lactic Acid Yes or No Add Lactic
[2022-10-20 14:36] LABS: Lactic Acid 1.6 mmol/L (0.7-2.0)
[2022-10-20] MEDS: BISACODYL 5 MG TABLET EC PO (14:53)
[2022-10-20] MEDS: polyethylene glycoL 3350 17 GM POWD.PACK PO (14:54)
[2022-10-20 17:35] VITALS: BP 150/70; PULSE 70; RESP 18; O2SAT 100
== END 2022-10-20 17:39 | disposition home or self-care (01) ==
PROVIDERS: Emergency Provider Physician Assistant
DX: K58.1 Irritable bowel syndrome with constipation (principal); E87.1 Hypo-osmolality and hyponatremia; E86.0 Dehydration; K51.90 Ulcerative colitis, unspecified, without complications
CPT/HCPCS: 36415; 74177; 80053; 81003; 83605; 83690; 85025; 96360; 96361; 99284; A9270; J7030; Q9967

== ENCOUNTER 2023-09-26 12:24 | Emergency (ER) | payer MEDICARE, SELFPAY ==
--- NOTE | 2023-09-26 12:32 | ED.URI ---
HPI - URI/Sore Throat General Chief Complaint: Upper Respiratory Infection Stated Complaint: congestion Time Seen by Provider: 09/26/23 12:28 Source: patient Mode of arrival: ambulatory Limitations: no limitations History of Present Illness HPI Narrative: Maggy is a 78-year-old female who presents to the clinic today with complaints of runny nose, congestion, and sinus pressure for 6 weeks. She states that started out as ?allergies with runny nose and nasal congestion. Now the congestion has progressed to her chest and is associated with a productive cough, sinus pressure, and sore throat. She denies any fevers, chills, shortness breath, or chest pain. MD elicited complaint: cough, rhinorrhea, nasal congestion and sinus pain Related Data Home Medications Medication Instructions Recorded Confirmed atorvastatin 10 mg tablet 10 mg DIRECTED 09/26/23 09/26/23 Allergies Allergy/AdvReac Type Severity Reaction Status Date / Time codeine Allergy Hallucinati Verified 10/11/22 13:18 ng Penicillins Allergy Hives Verified 10/11/22 13:17 Review of Systems Review of Systems: Pertinent positives per HPI. Patient denies any fever, chills, rash, visual changes, dizziness, shortness of breath, chest pain, palpitations, nausea, vomiting, diarrhea, constipation, abdominal pain, or any urinary issues. [facility] Past Medical History Medical History Anxiety Hypertension Irritable bowel syndrome Surgical History Surgical History H/O cataract extraction S/P tonsillectomy and adenoidectomy Family History Family History Mother Suicidal intent Father Kidney failure Diabetes mellitus Sibling Breast cancer Social History Social History Social History: The patient is legally from her . She typically lives in [place]. Her lives here. They have a son and a daughter. She has her daughter Alyssa listed as her account contact associate. She is retired. She is a former smoker Code status full code Smoking packs per day: 1 Smoking cigarettes per day: 20.0 Years smoked: 30 Smoking pack-years: 30.00 Smoking status: Former smoker Smoking end date: 11/07/22 Alcohol intake: never Substance use: never Substance use type: does not use Lack of Transportation: No Lack of Food: Never True Current Housing: I Have Housing Concerned About Future Housing: No Difficulty Paying Gas/Electric Bills: No Difficulty Paying for Meds: No Currently Unemployed: No Education: Bachelor's Degree Difficulty w/ Childcare or Family Care: No Spiritual care concerns: No Comments At the time of my signature, I reviewed and agree with the nursing past medical, surgical, social, and family history. There is no relevant family history pertinent to the patient complaint. Exam Narrative: General: Well-developed, well nourished, in no apparent distress Head: Normocephalic, atraumatic Eyes: Pupils equally round, EOM intact, sclera and conjunctive clear, no discharge, lids normal Ears: TMs intact and clear, ear canals clear, no drainage, grossly hearing normal. Nose: Nares patent, mild bilateral nare inflammation, positive maxillary sinus tenderness. Mouth: Oral pharynx without lesions or masses, good dentition, MMM. Neck: Supple, trachea midline, no enlargement of anterior or posterior cervical nodes, no thyroid masses or goiter palpable. Cardio: Regular rate and rhythm, s1 and s2 normal, no murmur appreciated. Resp: Clear to auscultation bilaterally, no rhonchi, rales, wheezing or rubs Course Course Emergency Course: Portions of this record may have been created with voice recognition software. Level of Care: Express Care Visit Vital Signs
[2023-09-26 12:38] VITALS: BP 124/83; PULSE 68; RESP 20; TEMP 36.9; O2SAT 98
== END 2023-09-26 13:04 | disposition home or self-care (01) ==
PROVIDERS: Emergency Provider Nurse Practitioner Family
DX: J01.90 Acute sinusitis, unspecified (principal); Z87.891 Personal history of nicotine dependence; I10 Essential (primary) hypertension
CPT/HCPCS: 99213; G0463